=== PATIENT | female | born 1940 | race Asian ===

== ENCOUNTER 2020-07-30 10:38 | Inpatient (IN) | payer MEDICARE, MEDICAID ==
[~2020-07-30] VITALS: Ht 152.4 cm; Wt 34.4 kg
[2020-07-30 10:42] VITALS: BP 140/74
--- NOTE | 2020-07-30 11:06 | Emergency Room Report ---
History of Present Illness General Chief Complaint: General Complaint Source: Patient, EMS Present Illness HPI Disclaimer: Please note that this report is being documented using DRAGON technology. This can lead to erroneous entry secondary to incorrect interpretation by the dictating instrument. HPI: 80-year-old female with no medical history presents to ED by EMS for evaluation of back pain, constipation and urinary retention. EMS reports recent back surgery though unsure procedure or timeframe. Patient is primarily Yi speaking and history was obtained using a tuck pointer phone. She denies any recent back injury, trauma or surgery. She states she has been unable to defecate or urinate for the past 2 days. Denies abdominal pain or distention. Denies nausea, vomiting. Denies pelvic pain, dysuria, hematuria or flank pain recently. Denies fever or chills. No other complaints from the patient. States she takes no medications. Family on their way to provide additional information. PMH: Patient denied PSH: Patient denied Allergies: Patient denied Social Hx: Patient denied Allergies: Coded Allergies: No Known Allergies (Unverified , 07/30/20) COVID-19 Screening Contact w/high risk pt: No Experienced COVID-19 symptoms?: No COVID-19 Testing performed MULTIFOCAL BUTTON GENERATOR: No Patient History Last Menstrual Period: na Nursing Documentation-PMH Past Medical History: No History, Except For Hx Hypertension: Yes Review of Systems All Other Systems: negative except mentioned in HPI Physical Exam Vital Signs Date Time Temp Pulse Resp B/P (MAP) Pulse Ox O2 Delivery O2 Flow Rate FiO2 07/30/20 10:33 97.9 120 18 142/80 (100) 96 Room Air General: Awake and alert, no acute distress HEENT: NC/AT. EOMI. Cardiovascular: Tachycardic. S1 and S2 normal. No murmur appreciated Resp: Normal work of breathing. No cough, wheezing or crackles appreciated Abdomen: Abdomen is soft, nondistended. Nontender Skin: Intact. No abrasions, laceration or rash over the exposed skin MSK: Normal tone and bulk. Moving all extremities. No obvious deformity. Neuro: Awake and alert. Mentating appropriately. Medical Decision Making Diagnostic Impression: Primary Impression: Urinary retention Additional Impressions: Bowel obstruction Lumbar compression fracture ER Course Is an 80-year-old female presenting for evaluation of inability urinate or defecate for the past 2 days with lower back pain. Differential includes was not limited to cauda equina syndrome, spinal fracture, spinal epidural abscess, metastatic lesion, UTI, pyelonephritis, acute kidney injury, kidney failure, bowel obstruction, ileus, mesenteric ischemia among others. Patient appears well and denying any complaints at this time though is tachycardic. Abdomen x- ray concerning for bowel obstruction versus ileus. CT was obtained showing multilevel disc disease and age-indeterminate endplate fractures in the lumbar spine as well as gaseous distention of the large intestine with no obvious obstruction. Questionable urinary tract infection. Will cover with antibiotics. Patient admitted to panel physician, Elida shetty. Laboratory Tests Test 07/30/20 10:54 07/30/20 11:28 White Blood Count 9.6 K/UL (4.8-10.8) Red Blood Count 4.60 M/UL (4.20-5.40) Hemoglobin 13.3 G/DL (12.0-16.0) Hematocrit 38.8 % (37.0-47.0) Mean Corpuscular Volume 84 FL (80-99) Mean Corpuscular Hemoglobin 28.9 PG (27.0-31.0) Mean Corpuscular Hemoglobin Concent 34.3 G/DL (32.0-36.0) Red Cell Distribution Width 10.9 % (11.6-14.8) L Platelet Count 184 K/UL (150-450) Mean Platelet Volume 5.6 FL (6.5-10.1) L Neutrophils (%) (Auto) 84.8 % (45.0-75.0) H Lymphocytes (%) (Auto) 7.3 % (20.0-45.0) L Monocytes (%) (Auto) 5.1 % (1.0-10.0) Eosinophils (%) (Auto) 0.7 % (0.0-3.0) Basophils (%) (Auto) 2.2 % (0.0-2.0) H Prothrombin Time 10.5 SEC (9.30-11.50) Prothrombin Time INR 0.9 (0.9-1.1) Activated Partial Thromboplast Time 28 SEC (23-33) Urine Color Brown Urine Appearance Slightly cloudy Urine pH 5 (4.5-8.0) Urine Specific [place] 1.025 (1.005-1.035) Urine Protein 2+ (NEGATIVE) H Urine Glucose (UA) Negative (NEGATIVE) Urine Ketones 2+ (NEGATIVE) H Urine Blood Negative (NEGATIVE) Urine Nitrite Negative (NEGATIVE) Urine Bilirubin Negative (NEGATIVE) Urine Urobilinogen 1 MG/DL (0.0-1.0) H Urine Leukocyte Esterase 1+ (NEGATIVE) H Urine RBC 2-4 /HPF (0 - 2) H Urine WBC 2-4 /HPF (0 - 2) Urine Squamous Epithelial Cells Moderate /LPF (NONE/OCC) H Urine Bacteria Few /HPF (NONE) Sodium Level 142 MMOL/L (136-145) Potassium Level 4.1 MMOL/L (3.5-5.1) Chloride Level 104 MMOL/L (98-107) Carbon Dioxide Level 26 MMOL/L (21-32) Anion Gap 12 mmol/L (5-15) Blood Urea Nitrogen 16 mg/dL (7-18) Creatinine 0.7 MG/DL (0.55-1.30) Estimated Glomerular Filtration Rate > 60 mL/min (>60) Glucose Level 116 MG/DL (74-106) H Calcium Level 9.2 MG/DL (8.5-10.1) Total Bilirubin 1.7 MG/DL (0.2-1.0) H Direct Bilirubin 0.4 MG/DL (0.0-0.3) H Aspartate Amino Transferase (AST) 12 U/L (15-37) L Alanine Aminotransferase (ALT) 12 U/L (12-78) Alkaline Phosphatase 132 U/L (46-116) H Total Protein 7.2 G/DL (6.4-8.2) Albumin 3.6 G/DL (3.4-5.0) Globulin 3.6 g/dL Albumin/Globulin Ratio 1.0 (1.0-2.7) Lactic Acid Level 1.20 mmol/L (0.4-2.0) Last Vital Signs Date Time Temp Pulse Resp B/P (MAP) Pulse Ox O2 Delivery O2 Flow Rate FiO2 07/30/20 10:42 97.9 71 18 140/74 96 Room Air Disposition: ADMITTED INPATIENT Condition: Stable Scripts Unable to Obtain Active Prescriptions or Reported Meds Lalo Barth MD Jul 30, 2020 11:06
--- NOTE | 2020-07-30 11:11 | Diagnostic Imaging Report ---
EXAM: XR Abdomen, 2 Views CLINICAL HISTORY: ABD PAIN TECHNIQUE: Frontal view of the abdomen/pelvis with upright view of the abdomen. COMPARISON: None FINDINGS: Hardware: None. Abdomen: Gaseous distention of colon No free air. Bones: Degenerative changes of the spine. Intramedullary eleazar and screw fixation of the right femur partially visualized. Soft tissues: Normal. Lower chest: Interstitial opacities in the visualized lower lungs. IMPRESSION: Gaseous distention of colon. This may represent ileus. Distal colonic obstruction not excluded.
[2020-07-30 11:15] LABS: BASOPHILS % (AUTO) 2.2 % (0.0-2.0); EOSINOPHILS % (AUTO) 0.7 % (0.0-3.0); HEMATOCRIT 38.8 % (37.0-47.0); HEMOGLOBIN 13.3 G/DL (12.0-16.0); LYMPHOCYTES % (AUTO) 7.3 % (20.0-45.0); MEAN CORPUSCULAR VOLUME 84 FL (80-99); MONOCYTES % (AUTO) 5.1 % (1.0-10.0); NEUTROPHILS % (AUTO) 84.8 % (45.0-75.0); PLATELET COUNT 184 K/UL (150-450); RED CELL DISTRIBUTION WIDTH 10.9 % (11.6-14.8); WHITE BLOOD COUNT 9.6 K/UL (4.8-10.8)
[2020-07-30 11:27] LABS: ANION GAP 12 mmol/L (5-15); BLOOD UREA NITROGEN 16 mg/dL (7-18); CALCIUM 9.2 MG/DL (8.5-10.1); CARBON DIOXIDE 26 MMOL/L (21-32); CHLORIDE 104 MMOL/L (98-107); CREATININE 0.7 MG/DL (0.55-1.30); INR 0.9 (0.9-1.1); POTASSIUM 4.1 MMOL/L (3.5-5.1); SODIUM 142 MMOL/L (136-145)
[2020-07-30] MEDS ORDERED: Omnipaque 350 100ml vial INJ ONE (11:30)
[2020-07-30 11:33] LABS: ALANINE AMINOTRANSFERASE 12 U/L (12-78); ALBUMIN 3.6 G/DL (3.4-5.0); ALKALINE PHOSPHATASE 132 U/L (46-116); ASPARTATE AMINO TRANSFERASE 12 U/L (15-37); BILIRUBIN,TOTAL 1.7 MG/DL (0.2-1.0)
[2020-07-30 11:54] LABS: BILIRUBIN,DIRECT 0.4 MG/DL (0.0-0.3)
[2020-07-30 12:22] VITALS: BP 136/81
[2020-07-30 12:38] LABS: APPEARANCE,URINE SLIGHTLY CLOUDY; BILIRUBIN, URINE NEGATIVE (NEGATIVE); COLOR,URINE BROWN; GLUCOSE, URINE (UA) NEGATIVE (NEGATIVE); KETONES,URINE 2+ (NEGATIVE); LEUKOCYTE ESTERASE ,URINE 1+ (NEGATIVE); NITRITE,URINE NEGATIVE (NEGATIVE); PH,URINE 5 (4.5-8.0); PROTEIN,URINE 2+ (NEGATIVE); UROBILINOGEN,URINE 1 MG/DL (0.0-1.0)
--- NOTE | 2020-07-30 13:26 | Diagnostic Imaging Report ---
EXAM: CT Abdomen and Pelvis With Intravenous Contrast CLINICAL HISTORY: PAIN TECHNIQUE: Axial computed tomography images of the abdomen and pelvis with intravenous contrast. CTDI is 2.6 mGy and DLP is 110.0 mGy-cm. One or more of the following dose reduction techniques were used: automated exposure control, adjustment of the mA and/or kV according to patient size, use of iterative reconstruction technique. COMPARISON: None FINDINGS: Lung bases: Lower lung atelectasis. Small calcified granuloma at the posterior right lung base. Pleural space: Trace left pleural effusion. Mediastinum: Mild prominence of the wall of the distal esophagus may represent esophagitis. ABDOMEN: Liver: Unremarkable. No mass. Gallbladder and bile ducts: Unremarkable. No calcified stones. No ductal dilation. Pancreas: Unremarkable. No mass. No ductal dilation. Spleen: Unremarkable. No splenomegaly. Adrenals: Unremarkable. No mass. Kidneys and ureters: See below. Stomach and bowel: Gastric wall thickening may be secondary to under distention versus gastritis. Mild gaseous distention of the colon. No evidence of obstruction. PELVIS: Appendix: Normal appendix. Bladder: Decompressed bladder. Reproductive: Retroverted uterus. ABDOMEN and PELVIS: Intraperitoneal space: Unremarkable. No free air. No significant fluid collection. Bones/joints: Age indeterminate compression deformities of the T12, L1, L2, L3, and L4 vertebral bodies. Arthritic contrast in the renal collecting systems. No hydronephrosis. Intramedullary eleazar and screw fixation of the right femur. Osteopenia. Degenerative changes of the spine. No dislocation. Soft tissues: Unremarkable. Vasculature: Unremarkable. No abdominal aortic aneurysm. Lymph nodes: Unremarkable. No enlarged lymph nodes. IMPRESSION: 1. Trace left pleural effusion. 2. Mild prominence of the wall of the distal esophagus may represent esophagitis. 3. Gastric wall thickening may be secondary to under distention versus gastritis. 4. Age indeterminate compression deformities of the T12, L1, L2, L3, and L4 vertebral bodies. 5. Mild gaseous distention of the colon. No evidence of obstruction.
--- NOTE | 2020-07-30 13:31 | Diagnostic Imaging Report ---
EXAM: CT Lumbar Spine Without Intravenous Contrast CLINICAL HISTORY: PAIN TECHNIQUE: Axial computed tomography images of the lumbar spine without intravenous contrast. CTDI is 3.5 mGy and DLP is 103.3 mGy-cm. One or more of the following dose reduction techniques were used: automated exposure control, adjustment of the mA and/or kV according to patient size, use of iterative reconstruction technique. COMPARISON: None FINDINGS: Bones: Age indeterminate compression deformities of the T12, L1, L2, L3, and L4 vertebral bodies. Osteopenia. Disc spaces: No subluxation. Degenerative changes of the spine. No significant spinal canal stenosis. Moderate bilateral neural foraminal stenoses at T11-12. Mild bilateral neural foraminal stenoses at T12-L1. Mild bilateral neural foraminal stenoses at L1-2, L2-3, and L3-4. Severe bilateral neural foraminal stenoses at L4-5 and L5-S1. Soft tissues: Normal. Other: Trace left pleural effusion partially visualized. Please see accompanying CT abdomen/pelvis for further details. IMPRESSION: 1. Age indeterminate compression deformities of the T12, L1, L2, L3, and L4 vertebral bodies. 2. Degenerative changes of the spine. No significant spinal canal stenosis. Multilevel neural foraminal stenoses as described.
[2020-07-30] MEDS ORDERED: cefTRIAXone 1 GM in NS 55 ML IVPB ONE (14:30)
[2020-07-30] MEDS ORDERED: Albuterol/Ipratropium 3ml neb HHN PRN (15:00)
[2020-07-30] MEDS ORDERED: HYDROmorphone 1mg/ml Carpuject IVP PRN (15:00)
--- NOTE | 2020-07-30 15:33 | History and Physical ---
History of Present Illness General Date patient seen: Jul 30, 2020 Reason for Hospitalization: General Complaint Present Illness HPI Mrs. Horner is a 80F with no sig PMH who was BIBA for back pain and urinary incontinence. Patient is Kiswahili speaking only and a services manager over the phone was used. Patient reports approx. 5 days ago suffering acute lower back pain that was exacerbated after she lifted "heavy things." Her back pain is dull, rates 8-10/10, non-radiating, no alleviating factors, but bending over makes it worse. Denies any LE weakness or sensory changes, saddle anesthesia; but notes difficulty with urinating over the last few days along with constipation. Denies previous similar hx. No hx of osteoporosis. Takes no home medications. Denies fevers, chills, pre-syncope, cough, sob, chest pain, abdominal pain, diarrhea or dysuria. She has decreased oral intake due to nausea, but no vomiting. No recent illnesses, sick contacts or travels. Rest of 10 point ROS negative besides what stated above. In the ED, patient found to be hemodynamically stable with no respiratory compromise. Imaging of abd/pelv shows mild dilated colon w/ no obstruction and spine CT shows multiple levels of age undetermined compression fx in her lumbar spine. She mainly complains of lower back pain, but otherwise stable. Nurse was able to straight cath her in which she subsequently later urinated in her bed. She will be admitted for possible Jamison obstruction, lumbar compression fracture, and urinary incontinence. PMH: none Sx: none Fx: denies DM, heart disease, lung disease Aller: none Meds: none Soc: non-smoker, drinker or recreational drug user Allergies: Coded Allergies: No Known Allergies (Unverified , 07/30/20) COVID-19 Screening Contact w/high risk pt: No Experienced COVID-19 symptoms?: No Medication History Unable to Obtain Active Prescriptions or Reported Meds Patient History Healthcare decision maker Resuscitation status Advanced Directive on File Physical Exam General Appearance: no apparent distress, alert, agitated HEENT: normocephalic, atraumatic Neck: non-tender, normal inspection Respiratory/Chest: lungs clear, normal breath sounds, no respiratory distress Cardiovascular/Chest: normal rate, regular rhythm, regularly irregular Abdomen: normal bowel sounds, non tender, soft Extremities: normal range of motion, non-tender, no edema Skin Exam: normal pigmentation, warm/dry 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, alert, oriented x 3 Musculoskeletal: normal muscle bulk Last 24 Hour Vital Signs Date Time Temp Pulse Resp B/P (MAP) Pulse Ox O2 Delivery O2 Flow Rate FiO2 07/30/20 12:22 75 18 136/81 97 Room Air 07/30/20 10:42 97.9 71 18 140/74 96 Room Air 07/30/20 10:42 74 18 Room Air 07/30/20 10:33 97.9 120 18 142/80 (100) 96 Room Air Laboratory Tests Test 07/30/20 10:54 07/30/20 11:28 White Blood Count 9.6 K/UL (4.8-10.8) Red Blood Count 4.60 M/UL (4.20-5.40) Hemoglobin 13.3 G/DL (12.0-16.0) Hematocrit 38.8 % (37.0-47.0) Mean Corpuscular Volume 84 FL (80-99) Mean Corpuscular Hemoglobin 28.9 PG (27.0-31.0) Mean Corpuscular Hemoglobin Concent 34.3 G/DL (32.0-36.0) Red Cell Distribution Width 10.9 % (11.6-14.8) L Platelet Count 184 K/UL (150-450) Mean Platelet Volume 5.6 FL (6.5-10.1) L Neutrophils (%) (Auto) 84.8 % (45.0-75.0) H Lymphocytes (%) (Auto) 7.3 % (20.0-45.0) L Monocytes (%) (Auto) 5.1 % (1.0-10.0) Eosinophils (%) (Auto) 0.7 % (0.0-3.0) Basophils (%) (Auto) 2.2 % (0.0-2.0) H Prothrombin Time 10.5 SEC (9.30-11.50) Prothromb Time International Ratio 0.9 (0.9-1.1) Activated Partial Thromboplast Time 28 SEC (23-33) Urine Color Brown Urine Appearance Slightly cloudy Urine pH 5 (4.5-8.0) Urine Specific [place] 1.025 (1.005-1.035) Urine Protein 2+ (NEGATIVE) H Urine Glucose (UA) Negative (NEGATIVE) Urine Ketones 2+ (NEGATIVE) H Urine Blood Negative (NEGATIVE) Urine Nitrite Negative (NEGATIVE) Urine Bilirubin Negative (NEGATIVE) Urine Urobilinogen 1 MG/DL (0.0-1.0) H Urine Leukocyte Esterase 1+ (NEGATIVE) H Urine RBC 2-4 /HPF (0 - 2) H Urine WBC 2-4 /HPF (0 - 2) Urine Squamous Epithelial Cells Moderate /LPF (NONE/OCC) H Urine Bacteria Few /HPF (NONE) Sodium Level 142 MMOL/L (136-145) Potassium Level 4.1 MMOL/L (3.5-5.1) Chloride Level 104 MMOL/L (98-107) Carbon Dioxide Level 26 MMOL/L (21-32) Anion Gap 12 mmol/L (5-15) Blood Urea Nitrogen 16 mg/dL (7-18) Creatinine 0.7 MG/DL (0.55-1.30) Estimat Glomerular Filtration Rate > 60 mL/min (>60) Glucose Level 116 MG/DL (74-106) H Calcium Level 9.2 MG/DL (8.5-10.1) Total Bilirubin 1.7 MG/DL (0.2-1.0) H Direct Bilirubin 0.4 MG/DL (0.0-0.3) H Aspartate Amino Transf (AST/SGOT) 12 U/L (15-37) L Alanine Aminotransferase (ALT/SGPT) 12 U/L (12-78) Alkaline Phosphatase 132 U/L (46-116) H Total Protein 7.2 G/DL (6.4-8.2) Albumin 3.6 G/DL (3.4-5.0) Globulin 3.6 g/dL Albumin/Globulin Ratio 1.0 (1.0-2.7) Lactic Acid Level 1.20 mmol/L (0.4-2.0) Height (Feet): 5 Weight (Pounds): 110 Medications Current Medications Medications (Trade) Dose Ordered Sig/Stefano Route PRN Reason Start Time Stop Time Status Last Admin Dose Admin Acetaminophen (Tylenol) 650 mg Q4H PRN ORAL Temp >100.5 07/30/20 15:00 08/29/20 14:59 Albuterol/ Ipratropium (Albuterol/ Ipratropium) 3 ml Q6H PRN HHN Shortness of Breath 07/30/20 15:00 08/04/20 14:59 Dextrose (Dextrose 50%) 25 ml Q30M PRN IV Hypoglycemia 07/30/20 15:00 10/28/20 14:59 Dextrose (Dextrose 50%) 50 ml Q30M PRN IV Hypoglycemia 07/30/20 15:00 10/28/20 14:59 Enoxaparin Sodium (Lovenox) 40 mg Q24H SUBQ 07/30/20 21:00 10/28/20 20:59 Hydromorphone HCl (Dilaudid) 1 mg Q4H PRN IVP breakthrough pain 07/30/20 15:00 08/06/20 14:59 Morphine Sulfate (Morphine Sulfate) 2 mg Q4H PRN IVP Severe Pain (Pain Scale 7-10) 07/30/20 15:00 08/06/20 14:59 Ondansetron HCl (Zofran) 4 mg Q6H PRN IVP Nausea & Vomiting 07/30/20 15:00 08/29/20 14:59 Pantoprazole (Protonix) 40 mg DAILY ORAL 07/30/20 15:00 08/29/20 14:59 Sodium Chloride 1,000 ml @ 100 mls/hr Q10H IVLG 07/30/20 16:00 08/29/20 15:59 Assessment/Plan Assessment/Plan: Mrs. Horner is a 80F with no sig PMH who presents for back pain, constipation and urinary incontinence. A: # Colon Distension 2/2 Jamison Obstruction vs Ileus # Age indeterminate compression vertebral body deformities T12-L4 # Severe Lumbar Spinal Stenosis # Urinary Incontinence # Gastritis # Hyperglycemia # Hyperbilirubinemia P: - hemodynamically stable - bowel rest - NPO besides ice chips/meds - serial KUB's - no electrolyte derangements or home medications as causes of pseudoobstruction - IVF resucitation - will hold off on surgery consult for now, will consider if obstruction does not improve - morphine for pain - strict I/O's - bladder scan if suspicion for retention - straight cath if PVR > 200 - patient denies dysuria, urinary frequency no clinical indication of UTI - consult Spinal Surgery : Dr. Woodall, recs appreciated - PT/OT - CM GI: PPI IVF: NS 100cc Abx: none DVT: Lovenox 40 mg subq Diet: NPO CODE: Full code Dsipo: pending resolution of bowel distension, spinal surgery recs, may benefit from SNF placement Time spent on this encounter was 85 minutes with 45 minutes dedicated to counseling and care coordination. I discussed with RN and currently awaiting spinal surgery recs as stated above. Time of this note may not reflect the time patient was seen. Giovanny Mirza D.O Jul 30, 2020 15:32
[2020-07-30 16:00] VITALS: BP 140/77
[2020-07-30 20:00] VITALS: BP 118/62
[2020-07-30] MEDS: Enoxaparin 40mg Inj SUBQ SCH (20:06)
--- NOTE | 2020-07-30 21:06 | General Progress Note ---
Advance Care Planning Advance Care Planning Advance Care Planning [facility] An independent Hospitalist group, where every patient is our [facility] Internal Medicine Hospitalist Advanced Care Planning Note Please contact us at Date of Discussion: A [id number] discussion with the patient regarding the patient's advanced care planning took place during this hospitalization on the above date. The discussion included the explanation and discussion of advance directives and associated forms/documents, as well as the patient's current code status. We also discussed at length the patient's medical conditions (both acute and chroni c), general prognosis, treatment options, and goals of care. The following summarizes the discussion: Advance Care Planning/Goals of Care: - Will attempt to fill out an AD and/or POLST with the patient prior to discharge, if not already completed - Continue current evaluation and management of any acute and chronic medical issues - Will continue to support the patient/family - Will continue to discuss both short- and long-term goals of care DPOA-HC/Surrogate Decision Maker: None currently appointed for the patient Code Status: Full Code Advanced Care Planning Forms/Documents Completed: Deferred until later encounter/visit A total of 20 minutes was spent on this discussion, including counseling, answering questions, and completing, if any, pertinent advanced care planning forms/documents. Time of note may not reflect time of encounter. Giovanny Mirza D.O Jul 30, 2020 21:06
[2020-07-31] VITALS: BP 107/53
[2020-07-31] MEDS: Morphine Sulfate 2mg/ml Inj(IV/IM USE ONLY) IVP PRN ×3 (03:35→20:14)
[2020-07-31 04:00] VITALS: BP 110/61
[2020-07-31 07:22] LABS: EOSINOPHILS % (AUTO) 0.3 % (0.0-3.0); HEMOGLOBIN 11.7 G/DL (12.0-16.0); LYMPHOCYTES % (AUTO) 12.2 % (20.0-45.0); MEAN CORPUSCULAR VOLUME 86 FL (80-99); MONOCYTES % (AUTO) 5.7 % (1.0-10.0); NEUTROPHILS % (AUTO) 80.7 % (45.0-75.0); PLATELET COUNT 172 K/UL (150-450); RED BLOOD COUNT 4.05 M/UL (4.20-5.40); RED CELL DISTRIBUTION WIDTH 11.1 % (11.6-14.8); WHITE BLOOD COUNT 6.5 K/UL (4.8-10.8)
[2020-07-31 07:48] LABS: ALANINE AMINOTRANSFERASE 9 U/L (12-78); ALBUMIN 2.9 G/DL (3.4-5.0); ALBUMIN/GLOBULIN RATIO 1.1 (1.0-2.7); ALKALINE PHOSPHATASE 108 U/L (46-116); ANION GAP 18 mmol/L (5-15); ASPARTATE AMINO TRANSFERASE 13 U/L (15-37); BLOOD UREA NITROGEN 20 mg/dL (7-18); CALCIUM 8.7 MG/DL (8.5-10.1); CARBON DIOXIDE 16 MMOL/L (21-32); CHLORIDE 109 MMOL/L (98-107); CREATININE 0.7 MG/DL (0.55-1.30); PHOSPHORUS 4.8 MG/DL (2.5-4.9); POTASSIUM 4.1 MMOL/L (3.5-5.1); SODIUM 143 MMOL/L (136-145)
[2020-07-31 08:00] VITALS: BP 108/51
[2020-07-31] MEDS ORDERED: Docusate 100mg cap ORAL SCH (09:00)
[2020-07-31] MEDS: D5 1/2NS 1,000 ML IV SCH ×2 (11:53→20:51)
[2020-07-31 12:00] VITALS: BP 110/57
[2020-07-31] MEDS ORDERED: Potassium Chloride 10 MEQ in D5 1/2NS 1,000 ML IV SCH (12:00)
--- NOTE | 2020-07-31 13:36 | General Progress Note ---
Subjective Date patient seen: Jul 31, 2020 ROS Limited/Unobtainable: Yes Allergies: Coded Allergies: No Known Allergies (Unverified , 07/30/20) Subjective Overnight patient reained 450 cc of urine and required straight cath. No other events. Patient still has back pain. No LE weakness, sensory deficits or saddle anesthesia. She still has no appetite. Has mild nausea, no vomiting. No tremors, palpitations or diaphoresis. Objective Last 24 Hour Vital Signs Date Time Temp Pulse Resp B/P (MAP) Pulse Ox O2 Delivery O2 Flow Rate FiO2 07/31/20 12:00 98.1 20 110/57 (74) 95 07/31/20 09:00 Room Air 07/31/20 08:00 97.9 98 20 108/51 (70) 95 07/31/20 04:00 97.7 102 18 110/61 (77) 94 07/31/20 00:00 96.7 97 18 107/53 (71) 93 07/30/20 21:00 Room Air 07/30/20 20:00 98.1 99 20 118/62 (80) 94 07/30/20 16:52 97.2 07/30/20 16:00 100.8 116 20 140/77 (98) 93 07/30/20 15:28 Room Air 07/30/20 15:24 98.3 72 16 141/86 98 Room Air Intake and Output 07/30/20 07/31/20 18:59 06:59 Intake Total 2255 ml 1200 ml Output Total 400 ml 820 ml Balance 1855 ml 380 ml Intake IV Total 2255 ml 1200 ml Output Urine Total 400 ml 410 ml Post Void Residual 410 ml Bladder Scan Volume Amount 428ml 83ml # Voids 1 Laboratory Tests 07/31/20 06:30: White Blood Count 6.5, Red Blood Count 4.05L, Hemoglobin 11.7L, Hematocrit 35.0L , Mean Corpuscular Volume 86, Mean Corpuscular Hemoglobin 29.0, Mean Corpuscular Hemoglobin Concent 33.6, Red Cell Distribution Width 11.1L, Platelet Count 172, Mean Platelet Volume 6.4L, Neutrophils (%) (Auto) 80.7H, Lymphocytes (%) (Auto) 12.2L, Monocytes (%) (Auto) 5.7, Eosinophils (%) (Auto) 0.3, Basophils (%) (Auto) 1.0, Sodium Level 143, Potassium Level 4.1, Chloride Level 109H, Carbon Dioxide Level 16L, Anion Gap 18H, Blood Urea Nitrogen 20H, Creatinine 0.7, Estimat Glomerular Filtration Rate > 60, Glucose Level 54L, Hemoglobin A1c 5.4, Calcium Level 8.7, Phosphorus Level 4.8, Magnesium Level 1.9, Total Bilirubin 1.0, Aspartate Amino Transf (AST/SGOT) 13L, Alanine Aminotransferase (ALT/SGPT) 9L, Alkaline Phosphatase 108, Total Protein 5.5L, Albumin 2.9L, Globulin 2.6, Albumin/Globulin Ratio 1.1, Vitamin D 25-Hydroxy [Pending], 25-Hydroxy Vitamin D2 [Pending], 25-Hydroxy Vitamin D3 [Pending], Thyroid Stimulating Hormone (TSH) < 0.010L, Free Thyroxine 2.57H 07/31/20 11:00: Lactic Acid Level 0.80 Height (Feet): 5 Height (Inches): 0.00 Weight (Pounds): 70 General Appearance: no apparent distress, thin EENT: PERRL/EOMI Neck: normal alignment, normal inspection Cardiovascular: normal rate, regular rhythm, no JVD Respiratory/Chest: lungs clear, normal breath sounds, no respiratory distress Abdomen: normal bowel sounds, non tender, no organomegaly Extremities: normal range of motion, non-tender Edema: no edema noted Arm (L), no edema noted Arm (R), no edema noted Leg (L), no edema noted Leg (R), no edema noted Pedal (L), no edema noted Pedal (R), no edema noted 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 Horner is a 80F with no sig PMH who presents for back pain, constipation and urinary incontinence. A: # Colon Distension 2/2 Jamison Obstruction vs Ileus # Age indeterminate compression vertebral body deformities T12-L4 # Anion Gap Metabolic Acidosis # Severe Lumbar Spinal Stenosis # Urinary Incontinence # ?New Hyperthyroidsm - aysmptomatic # Gastritis # Hyperglycemia # Hyperbilirubinemia P: - hemodynamically stable - bowel rest - NPO besides ice chips/meds - serial KUB's > repeat pending - no electrolyte derangements or home medications as causes of pseudoobstruction - IVF resucitation - worsening metabolic acidosis, will have surgery evaluate her - morphine for pain - strict I/O's - bladder scan q6h - straight cath if PVR > 200 - patient denies dysuria, urinary frequency no clinical indication of UTI - reviewed hyperthyroid labs, asymptomatic and vitals stable at this time, no nodules palpated - consult Dr. Sneed endocrinology, recs appreciated - consult Spinal Surgery : Dr. Deutsch, recs appreciated - consult Dr. Marquez gen surgery, recs appreciated - PT/OT - CM GI: PPI IVF: D5NS 100cc Abx: none DVT: Lovenox 40 mg subq Diet: NPO CODE: Full code Dsipo: pending resolution of bowel distension, spinal surgery recs, may benefit from SNF placement Time spent on this encounter was 45 minutes with 25 minutes dedicated to counseling and care coordination. I discussed with RNand Dr. Deutsch, Dr. Sneed, and Dr Marquez. Time of this note may not reflect the time patient was seen. Giovanny Mirza D.O Jul 31, 2020 13:36
[2020-07-31 16:00] VITALS: BP 147/79
--- NOTE | 2020-07-31 18:09 | Diagnostic Imaging Report ---
Indication: Abdominal distention and pain Technique: Supine view of the abdomen Comparison: 07/30/2020 Findings: As previously, considerable gas is seen distributed through upper limits of normal caliber large and small bowel. Amount of bowel gas appears decreased. Contrast from recent CT scan is seen within the bladder. There is evidence of multiple vertebral body compression fractures. There is right hip surgical hardware Impression: Prominent bowel gas without evidence of avi distention, overall amount of gas slightly decreased from previous day's exam. No definite acute process.
[2020-07-31 20:00] VITALS: BP 137/75
[2020-07-31] MEDS: Enoxaparin 40mg Inj SUBQ SCH (20:14)
--- NOTE | 2020-07-31 21:24 | Consultation ---
History of Present Illness General Reason for Hospitalization: General Complaint Present Illness HPI this is a very pleasant 80-year-old female with no medical history who presents to ED by EMS for evaluation of back pain, constipation and urinary retention. EMS reports recent back surgery though unsure procedure or timeframe. Patient is primarily Croatian speaking and history was obtained using a sales service coordinator phone. She denies any recent back injury, trauma or surgery. She states she has been unable to defecate or urinate for the past 2 days. Denies abdominal pain or distention. Denies nausea, vomiting. Denies pelvic pain, dysuria, hematuria or flank pain recently. Denies fever or chills. No other complaints from the patient. States she takes no medications. admitted for work up care and management. surgery called to evaluate and assist with care. Allergies: Coded Allergies: No Known Allergies (Unverified , 07/30/20) COVID-19 Screening Contact w/high risk pt: No Experienced COVID-19 symptoms?: No Medication History Unable to Obtain Active Prescriptions or Reported Meds Patient History Limited by: language barrier History Provided By: Patient, Medical Record, PMD Healthcare decision maker Resuscitation status Advanced Directive on File Past Medical/Surgical History Past Medical/Surgical History: (1) Urinary retention (2) Bowel obstruction (3) Lumbar compression fracture Review of Systems Review of Symptoms General ROS: no weight loss or fever Psychological ROS: no depression or mood changes, no memory loss Ophthalmic ROS: no visual changes or eye irritation ENT ROS: no nasal congestion, hearing loss, dizziness Allergy and Immunology ROS: no allergic symptoms or urticaria Hematological and Lymphatic ROS: no swollen glands, unusual bleeding or bruising Endocrine ROS: no polyuria, polydipsia, weight changes, temperature intolerance Respiratory ROS: no cough, shortness of breath, or wheezing Cardiovascular ROS: no chest pain or dyspnea on exertion Gastrointestinal ROS: denies abdominal pain, bright red blood in stool. Musculoskeletal ROS: no myalgias or arthralgias Neurological ROS: no TIA or stroke symptoms Dermatological ROS: no new or changing skin lesions, rashes or pruritis Physical Exam Physical Exam General appearance: alert, cooperative, no distress, appears stated age Head: Normocephalic, without obvious abnormality, atraumatic Eyes: conjunctivae/corneas clear. PERRL, EOM's intact. Fundi benign Throat: Lips, mucosa, and tongue normal. Teeth and gums normal Neck: supple, symmetrical, trachea midline, no adenopathy, thyroid: not enlarged, symmetric, no tenderness/mass/nodules, no carotid bruit and no JVD Lungs: clear to auscultation bilaterally Heart: regular rate and rhythm, S1, S2 normal, no murmur, click, rub or gallop Abdomen: soft, non-tender. Bowel sounds normal. No masses, no organomegaly Extremities: extremities normal, atraumatic, no cyanosis or edema Pulses: 2+ and symmetric Skin: Skin color, texture, turgor normal. No rashes or lesions Neurologic: Grossly normal Last 24 Hour Vital Signs Date Time Temp Pulse Resp B/P (MAP) Pulse Ox O2 Delivery O2 Flow Rate FiO2 07/31/20 21:00 Room Air 07/31/20 20:00 98.1 109 22 137/75 (95) 92 07/31/20 16:00 98.1 100 20 147/79 (101) 94 07/31/20 12:00 98.1 20 110/57 (74) 95 07/31/20 09:00 Room Air 07/31/20 08:08 96 Room Air 07/31/20 08:00 97.9 98 20 108/51 (70) 95 07/31/20 04:00 97.7 102 18 110/61 (77) 94 07/31/20 00:00 96.7 97 18 107/53 (71) 93 Intake and Output 07/30/20 07/31/20 19:00 07:00 Intake Total 2255 ml 1200 ml Output Total 400 ml 820 ml Balance 1855 ml 380 ml IV Total 2255 ml 1200 ml Output Urine Total 400 ml 410 ml Post Void Residual 410 ml Bladder Scan Volume Amount 428ml 83ml # Voids 1 Laboratory Tests Test 07/31/20 06:30 07/31/20 11:00 White Blood Count 6.5 K/UL (4.8-10.8) Red Blood Count 4.05 M/UL (4.20-5.40) L Hemoglobin 11.7 G/DL (12.0-16.0) L Hematocrit 35.0 % (37.0-47.0) L Mean Corpuscular Volume 86 FL (80-99) Mean Corpuscular Hemoglobin 29.0 PG (27.0-31.0) Mean Corpuscular Hemoglobin Concent 33.6 G/DL (32.0-36.0) Red Cell Distribution Width 11.1 % (11.6-14.8) L Platelet Count 172 K/UL (150-450) Mean Platelet Volume 6.4 FL (6.5-10.1) L Neutrophils (%) (Auto) 80.7 % (45.0-75.0) H Lymphocytes (%) (Auto) 12.2 % (20.0-45.0) L Monocytes (%) (Auto) 5.7 % (1.0-10.0) Eosinophils (%) (Auto) 0.3 % (0.0-3.0) Basophils (%) (Auto) 1.0 % (0.0-2.0) Sodium Level 143 MMOL/L (136-145) Potassium Level 4.1 MMOL/L (3.5-5.1) Chloride Level 109 MMOL/L (98-107) H Carbon Dioxide Level 16 MMOL/L (21-32) L Anion Gap 18 mmol/L (5-15) H Blood Urea Nitrogen 20 mg/dL (7-18) H Creatinine 0.7 MG/DL (0.55-1.30) Estimat Glomerular Filtration Rate > 60 mL/min (>60) Glucose Level 54 MG/DL (74-106) L Hemoglobin A1c 5.4 % (4.3-6.0) Calcium Level 8.7 MG/DL (8.5-10.1) Phosphorus Level 4.8 MG/DL (2.5-4.9) Magnesium Level 1.9 MG/DL (1.8-2.4) Total Bilirubin 1.0 MG/DL (0.2-1.0) Aspartate Amino Transf (AST/SGOT) 13 U/L (15-37) L Alanine Aminotransferase (ALT/SGPT) 9 U/L (12-78) L Alkaline Phosphatase 108 U/L (46-116) Total Protein 5.5 G/DL (6.4-8.2) L Albumin 2.9 G/DL (3.4-5.0) L Globulin 2.6 g/dL Albumin/Globulin Ratio 1.1 (1.0-2.7) Vitamin D 25-Hydroxy Pending 25-Hydroxy Vitamin D2 Pending 25-Hydroxy Vitamin D3 Pending Thyroid Stimulating Hormone (TSH) < 0.010 uiU/mL (0.358-3.740) Free Thyroxine 2.57 NG/DL (0.76-1.46) H Lactic Acid Level 0.80 mmol/L (0.4-2.0) Height (Feet): 5 Height (Inches): 0.00 Weight (Pounds): 70 Medications Current Medications Medications (Trade) Dose Ordered Sig/Stefano Route PRN Reason Start Time Stop Time Status Last Admin Dose Admin Acetaminophen (Tylenol) 650 mg Q4H PRN ORAL Temp >100.5 07/30/20 15:00 08/29/20 14:59 07/30/20 16:22 Albuterol/ Ipratropium (Albuterol/ Ipratropium) 3 ml Q6H PRN HHN Shortness of Breath 07/30/20 15:00 08/04/20 14:59 Dextrose (Dextrose 50%) 25 ml Q30M PRN IV Hypoglycemia 07/30/20 15:00 10/28/20 14:59 Dextrose (Dextrose 50%) 50 ml Q30M PRN IV Hypoglycemia 07/30/20 15:00 10/28/20 14:59 Dextrose/Sodium Chloride 1,000 ml @ 100 mls/hr Q10H IV 07/31/20 12:00 08/30/20 11:59 07/31/20 20:51 Docusate Sodium (Colace) 100 mg DAILY ORAL 07/31/20 09:00 08/30/20 08:59 07/31/20 09:12 Enoxaparin Sodium (Lovenox) 40 mg Q24H SUBQ 07/30/20 21:00 10/28/20 20:59 07/31/20 20:14 Hydromorphone HCl (Dilaudid) 1 mg Q4H PRN IVP breakthrough pain 07/30/20 15:00 08/06/20 14:59 Morphine Sulfate (Morphine Sulfate) 2 mg Q4H PRN IVP Severe Pain (Pain Scale 7-10) 07/30/20 15:00 08/06/20 14:59 07/31/20 20:14 Ondansetron HCl (Zofran) 4 mg Q6H PRN IVP Nausea & Vomiting 07/30/20 15:00 08/29/20 14:59 Pantoprazole (Protonix) 40 mg DAILY ORAL 07/30/20 15:00 08/29/20 14:59 07/31/20 09:12 Assessment/Plan Problem List: (1) Urinary retention ICD Codes: R33.9 - Retention of urine, unspecified SNOMED: 432487836 (2) Bowel obstruction Assessment & Plan: CT and KUB reviewed Exam benign. abd soft nt/nd, bs+ patient without complaints. unlikely obstruction no bm in days. likely constipated bowel care. start trial diet will follow with exam and recs ABDOMEN: Liver: Unremarkable. No mass. Gallbladder and bile ducts: Unremarkable. No calcified stones. No ductal dilation. Pancreas: Unremarkable. No mass. No ductal dilation. Spleen: Unremarkable. No splenomegaly. Adrenals: Unremarkable. No mass. Kidneys and ureters: See below. Stomach and bowel: Gastric wall thickening may be secondary to under distention versus gastritis. Mild gaseous distention of the colon. No evidence of obstruction. PELVIS: Appendix: Normal appendix. Bladder: Decompressed bladder. Reproductive: Retroverted uterus. ABDOMEN and PELVIS: Intraperitoneal space: Unremarkable. No free air. No significant fluid collection. Bones/joints: Age indeterminate compression deformities of the T12, L1, L2, L3, and L4 vertebral bodies. Arthritic contrast in the renal collecting systems. No hydronephrosis. Intramedullary eleazar and screw fixation of the right femur. Osteopenia. Degenerative changes of the spine. No dislocation. Soft tissues: Unremarkable. Vasculature: Unremarkable. No abdominal aortic aneurysm. Lymph nodes: Unremarkable. No enlarged lymph nodes. IMPRESSION: 1. Trace left pleural effusion. 2. Mild prominence of the wall of the distal esophagus may represent esophagitis. 3. Gastric wall thickening may be secondary to under distention versus gastritis. 4. Age indeterminate compression deformities of the T12, L1, L2, L3, and L4 vertebral bodies. 5. Mild gaseous distention of the colon. No evidence of obstruction. ICD Codes: K56.609 - Unspecified intestinal obstruction, unspecified as to partial versus complete obstruction SNOMED: [id number] (3) Lumbar compression fracture ICD Codes: S32.000A - Wedge compression fracture of unspecified lumbar vertebra, initial encounter for closed fracture SNOMED: 717970602 Mikhail Marquez Jul 31, 2020 21:24
[2020-07-31] MEDS ORDERED: Milk of Magnesia 30ml Ud ORAL PRN (21:30)
[2020-08-01 08:00] VITALS: BP 140/70
[2020-08-01] MEDS: D5 1/2NS 1,000 ML IV SCH ×2 (08:00→17:21)
[2020-08-01] MEDS: Docusate 100mg cap ORAL SCH ×2 (09:00→17:22)
[2020-08-01 09:05] LABS: BASOPHILS % (AUTO) 4.6 % (0.0-2.0); HEMATOCRIT 34.3 % (37.0-47.0); HEMOGLOBIN 11.7 G/DL (12.0-16.0); LYMPHOCYTES % (AUTO) 13.2 % (20.0-45.0); MEAN CORPUSCULAR VOLUME 84 FL (80-99); MONOCYTES % (AUTO) 10.4 % (1.0-10.0); NEUTROPHILS % (AUTO) 69.8 % (45.0-75.0); PLATELET COUNT 188 K/UL (150-450); RED BLOOD COUNT 4.09 M/UL (4.20-5.40); RED CELL DISTRIBUTION WIDTH 10.7 % (11.6-14.8); WHITE BLOOD COUNT 8.1 K/UL (4.8-10.8)
--- NOTE | 2020-08-01 09:15 | Consultation ---
DATE OF CONSULTATION: 07/31/2020 CONSULTING PHYSICIAN: Bo Deutsch MD CHIEF COMPLAINT: Low back pain. HISTORY OF PRESENT ILLNESS: Patient is a pleasant 80-year-old female who presents with back pain and urinary incontinence. Patient speaks only Pashto. She reports that she began experiencing low back pain, possibly 5 days ago after lifting some heavy objects. She subsequently was brought to the emergency room where she was noted to have significant discomfort and pain in the lower back, some difficulty ambulating. Therefore, she was admitted for pain management and orthopedic consultation was obtained for further care and recommendation. PAST MEDICAL HISTORY: Per intake chart. PAST SURGICAL HISTORY: Per intake chart. MEDICATIONS: Per intake chart. PHYSICAL EXAMINATION: GENERAL: Patient is resting comfortably on bed. VITAL SIGNS: Afebrile. Stable vital signs. BACK: Low back examination showed tenderness to palpation. Patient does have sensation along the perineal area. IMAGING STUDIES: CT scan of the lumbar spine shows multilevel vertebral compression fractures at T12, L2, L3. ASSESSMENT: 1. Multilevel lumbar compression fracture, L2 and L3 vertebral body. 2. T12 thoracic vertebral body fracture. DISCUSSION: At this point, she may have had progression of the compression fractures. The only way to assess for that is to get an MRI to see if there is any acute verses chronic injury. The patient does have severe osteoporosis given her multiple fractures that she has in her vertebral body as well as pervious history of hip fracture. At this point, what we would like to do is MRI of lumbar spine and then follow up based on those results for further care and recommendations. Bo Deutshc M.D. DR: BILLIE JOB#: [id number] CC: JUSTYNA
[2020-08-01 09:17] LABS: ANION GAP 14 mmol/L (5-15); BLOOD UREA NITROGEN 9 mg/dL (7-18); CALCIUM 8.7 MG/DL (8.5-10.1); CARBON DIOXIDE 20 MMOL/L (21-32); CHLORIDE 106 MMOL/L (98-107); CREATININE 0.6 MG/DL (0.55-1.30); PHOSPHORUS 2.6 MG/DL (2.5-4.9); POTASSIUM 3.3 MMOL/L (3.5-5.1); SODIUM 140 MMOL/L (136-145)
--- NOTE | 2020-08-01 10:54 | CDS Physician Query ---
Clarification is required for compliance, coding accuracy, and to reflect severity of illness for this patient Dear Dr. Joan Cruz Date: 08/01/2020 [facility] Consultant/CDS Name: Ana Alex Clinical Documentation states: 80F with no sig PMH who presents for back pain, constipation and urinary incontinence. A: # Colon Distension 2/2 [place] Obstruction vs Ileus # Age indeterminate compression vertebral body deformities T12-L4 # Severe Lumbar Spinal Stenosis # Urinary Incontinence # Gastritis # Hyperglycemia # Hyperbilirubinemia NUTRITION DIAGNOSIS: Increased kcal/prot needs R/T underweight status and wound healing as evidenced by pt @ 81% IBW w/ BMI of 16.3, underweight per guidelines, admitted w/ sacral stage 2 wound. BMI: 14.3, Albumin 2.9 Please select the most appropriate option: [] Underweight [] Protein/Calorie Malnutrition [] Mild [] Moderate [] Severe [] Hypoalbuminemia [] Cachexia [] Intestinal malabsorption [] Other [] Unable to determine [] Not Applicable Present on Admission: [] Yes [] No [] Clinically Undetermined Physician signature Date Please also document in your Progress Notes and/or Discharge Summary and indicate if the condition was present on admission. MTDD
[2020-08-01 12:00] VITALS: BP 132/77
--- NOTE | 2020-08-01 13:01 | Surgery Progress Note ---
Surgery Progress Note Subjective Additional Comments ortho input noted tolerated clears comfortable passing flatus no pain Objective Last 24 Hour Vital Signs Date Time Temp Pulse Resp B/P (MAP) Pulse Ox O2 Delivery O2 Flow Rate FiO2 08/01/20 12:00 98.1 100 20 132/77 (95) 95 08/01/20 09:00 Room Air 08/01/20 08:10 99 Room Air 08/01/20 08:00 97.2 95 20 140/70 (93) 92 07/31/20 21:00 Room Air 07/31/20 20:00 98.1 109 22 137/75 (95) 92 07/31/20 16:00 98.1 100 20 147/79 (101) 94 I&O Intake and Output 07/31/20 08/01/20 19:00 07:00 Intake Total 1100 ml 200 ml Output Total 600 ml 1220 ml Balance 500 ml -1020 ml Intake Oral 500 ml IV Total 600 ml 200 ml Output Urine Total 300 ml 610 ml Post Void Residual 300 ml 610 ml Bladder Scan Volume Amount 367 628 31 0ml # Voids 4 1 Dressing: dry Wound: clean Cardiovascular: RSR Respiratory: clear Abdomen: soft, non-tender, present bowel sounds, non-distended Extremities: no edema, no tenderness, no cyanosis Laboratory Tests Test 08/01/20 08:50 White Blood Count 8.1 K/UL (4.8-10.8) Red Blood Count 4.09 M/UL (4.20-5.40) L Hemoglobin 11.7 G/DL (12.0-16.0) L Hematocrit 34.3 % (37.0-47.0) L Mean Corpuscular Volume 84 FL (80-99) Mean Corpuscular Hemoglobin 28.7 PG (27.0-31.0) Mean Corpuscular Hemoglobin Concent 34.3 G/DL (32.0-36.0) Red Cell Distribution Width 10.7 % (11.6-14.8) L Platelet Count 188 K/UL (150-450) Mean Platelet Volume 5.5 FL (6.5-10.1) L Neutrophils (%) (Auto) 69.8 % (45.0-75.0) Lymphocytes (%) (Auto) 13.2 % (20.0-45.0) L Monocytes (%) (Auto) 10.4 % (1.0-10.0) H Eosinophils (%) (Auto) 2.0 % (0.0-3.0) Basophils (%) (Auto) 4.6 % (0.0-2.0) H Erythrocyte Sedimentation Rate 41 MM/HR (0-30) H Sodium Level 140 MMOL/L (136-145) Potassium Level 3.3 MMOL/L (3.5-5.1) L Chloride Level 106 MMOL/L (98-107) Carbon Dioxide Level 20 MMOL/L (21-32) L Anion Gap 14 mmol/L (5-15) Blood Urea Nitrogen 9 mg/dL (7-18) Creatinine 0.6 MG/DL (0.55-1.30) Estimat Glomerular Filtration Rate > 60 mL/min (>60) Glucose Level 91 MG/DL (74-106) Calcium Level 8.7 MG/DL (8.5-10.1) Phosphorus Level 2.6 MG/DL (2.5-4.9) Magnesium Level 1.8 MG/DL (1.8-2.4) Free Triiodothyronine 2.5 pg/mL (2.3-4.2) Thyroid Stimulating Immunoglobulin Pending Plan Problems: (1) Urinary retention (2) Bowel obstruction Assessment & Plan: CT and KUB reviewed Exam benign. abd soft nt/nd, bs+ patient without complaints. unlikely obstruction no bm in days. likely constipated bowel care. start trial diet will follow with exam and recs DAILY ESTIMATED NEEDS: Needs based on Underweight, wound/ 35kg 30-40 kcals/kg 1328-8428 total kcals 1.25-1.5 g protein/kg 44-53 g total protein 25-30 mL/kg 875-1050 total fluid mLs NUTRITION DIAGNOSIS: Increased kcal/prot needs R/T underweight status and wound healing as evidenced by pt @ 81% IBW w/ BMI of 16.3, underweight per guidelines, admitted w/ sacral stage 2 wound. CURRENT DIET:CLEAR LIQUID DIET PO DIET RECOMMENDATIONS: Advance diet per MD -> liberalized REGULAR/ texture as tolerated ADDITIONAL RECOMMENDATIONS: * Daily calibrated bedscale wt * Monitor for BMs: admitted w/ constipation, refusing stool softners * Ensure CLEAR TID while on clear liquid diet * Wound healing: MVI x 1, Vit C 500mg QD VIANCA BID as tolerated * Advance diet in a timely manner: on CLD at this time * Monitor lytes, replete as needed (low K) ABDOMEN: Liver: Unremarkable. No mass. Gallbladder and bile ducts: Unremarkable. No calcified stones. No ductal dilation. Pancreas: Unremarkable. No mass. No ductal dilation. Spleen: Unremarkable. No splenomegaly. Adrenals: Unremarkable. No mass. Kidneys and ureters: See below. Stomach and bowel: Gastric wall thickening may be secondary to under distention versus gastritis. Mild gaseous distention of the colon. No evidence of obstruction. PELVIS: Appendix: Normal appendix. Bladder: Decompressed bladder. Reproductive: Retroverted uterus. ABDOMEN and PELVIS: Intraperitoneal space: Unremarkable. No free air. No significant fluid collection. Bones/joints: Age indeterminate compression deformities of the T12, L1, L2, L3, and L4 vertebral bodies. Arthritic contrast in the renal collecting systems. No hydronephrosis. Intramedullary eleazar and screw fixation of the right femur. Osteopenia. Degenerative changes of the spine. No dislocation. Soft tissues: Unremarkable. Vasculature: Unremarkable. No abdominal aortic aneurysm. Lymph nodes: Unremarkable. No enlarged lymph nodes. IMPRESSION: 1. Trace left pleural effusion. 2. Mild prominence of the wall of the distal esophagus may represent esophagitis. 3. Gastric wall thickening may be secondary to under distention versus gastritis. 4. Age indeterminate compression deformities of the T12, L1, L2, L3, and L4 vertebral bodies. 5. Mild gaseous distention of the colon. No evidence of obstruction. (3) Lumbar compression fracture Mikhail Maqruez Aug 01, 2020 13:01
--- NOTE | 2020-08-01 14:45 | Consultation ---
DATE OF CONSULTATION: 08/01/2020 ENDOCRINOLOGY CONSULTATION CONSULTING PHYSICIAN: Gurpreet Sneed MD REFERRING PHYSICIAN: Dr Ann Nelson REASON FOR CONSULTATION: Hyperthyroidism. HISTORY OF PRESENT ILLNESS: It is important to note that the patient is Sinhala speaking only, and most of the history is obtained from the review of the chart and medical records. The patient is an 80-year-old Sinhala female without any past medical history who presented to the hospital with back pain and bowel obstruction. The patient was noted to have compression fractures. As a part of the evaluation, the thyroid function was obtained, which surprisingly showed undetectable TSH and significantly elevated T4 of 2.57. She denies any palpitations, heat intolerance or tremor and/or neck pain. Therefore, Endocrinology was consulted. PAST MEDICAL HISTORY: None. PAST SURGICAL HISTORY: None. FAMILY HISTORY: Noncontributory. SOCIAL HISTORY: No smoking, alcohol, or drug use. ALLERGIES TO MEDICATIONS: None. MEDICATIONS: Medications as an outpatient none. REVIEW OF SYSTEMS: Unobtainable due to language barrier. Labs discussed in the history of present illness. PHYSICAL EXAMINATION: GENERAL: Temperature 98.1, heart rate 100, blood pressure 137/75, pulse ox 92%. HEENT: Pupils are equal and reactive to light. Sclerae are anicteric. NECK: Thyroid is palpable, firm without palpable nodules. HEART: Regular. LUNGS: Clear. ABDOMEN: Positive bowel sounds. EXTREMITIES: No clubbing, cyanosis, or edema. DIAGNOSIS: Hyperthyroidism, most likely secondary to underlying Graves disease. DISCUSSION: In order to rule out Graves disease will order thyroid peroxidase antibody and thyroid-stimulating immunoglobulin. Thyroid ultrasound will be obtained to look for gland hyperemia and increased vascularity, which will be suggestive of Graves gland. Free T3 will be checked, which is expected to be high in Graves. ESR will be checked in order to rule out possibility of subacute thyroiditis. I will wait for the results before starting the patient on antithyroid medication. We will follow the results. Thank you for the courtesy of this consultation. Gurpreet Sneed M.D. DR: Karen JOB#: [id number] CC: JUSTYNA
[2020-08-01 16:00] VITALS: BP 148/79
--- NOTE | 2020-08-01 16:52 | Diagnostic Imaging Report ---
EXAM: US Thyroid CLINICAL HISTORY: Reason For Exam: MASS. COMPARISON: None TECHNIQUE: Ultrasound examination of the thyroid includes grayscale images, and color and spectral doppler analysis. FINDINGS: Limited examination due to patient's inability to tolerate positioning. The right lobe of the thyroid measures 3.6 x 1.7 x 1 point centimeter. Echotexture is homogenous. There is a solid well-circumscribed hyperechoic nodule, not taller than wide, with posterior acoustic shadowing measuring up to 3 mm. The left lobe of the thyroid measures 2.9 x 1.3 x 1.47. Echotexture is homogenous. The isthmus appears unremarkable and measures 0.25 cm. Vascularity appears unremarkable. IMPRESSION: Limited examination due to patient's inability to tolerate examination. Within these limitations: SUBCENTIMETER RIGHT THYROID NODULE WITH TI-RADS 3 CLASSIFICATION. RECOMMEND FOLLOW-UP ULTRASOUND IN ONE YEAR. * TIRADS criteria reference Composition: Cystic or almost completely cystic - 0 points Spongiform - 0 points Mixed cystic and solid - 1 point Solid or almost completely solid - 2 points Echogenicity: Anechoic - 0 points Hyperechoic or isoechoic - 1 point Hypoechoic - 2 points Very hypoechoic - 3 points Shape: [id number] - 0 points [id number] - 3 points Margin: Smooth - 0 points Ill-defined - 0 points Lobulated or irregular - 2 points Extra-thyroidal extension - 3 points Echogenic Foci: None or large comet-tail artifacts - 0 points Macrocalcifications - 1 point Peripheral (rim) calcifications - 2 points Punctate echogenic foci - 3 points
--- NOTE | 2020-08-01 18:38 | General Progress Note ---
Subjective Date patient seen: Aug 01, 2020 Time patient seen: 10:39 ROS Limited/Unobtainable: Yes Constitutional: Denies: no symptoms, chills, diaphoresis, fever, malaise, weakness, other HEENT: Denies: no symptoms, eye pain, blurred vision, tearing, double vision, ear pain, ear discharge, nose pain, nose congestion, throat pain, throat swelling, mouth pain, mouth swelling, other Cardiovascular: Denies: no symptoms, chest pain, edema, irregular heart rate, lightheadedness, palpitations, syncope, other Neurologic/Psychiatric: Denies: no symptoms, anxiety, depressed, emotional problems, headache, numbness, paresthesia, pre-existing deficit, seizure, tingling, tremors, weakness, other Allergies: Coded Allergies: No Known Allergies (Unverified , 07/30/20) Subjective - Patient remains confused - Assistance from nursing staff to communicate with patient who says she is feeling well - Refusing blood draws, imaging, food, and further care despite encouragement Objective Last 24 Hour Vital Signs Date Time Temp Pulse Resp B/P (MAP) Pulse Ox O2 Delivery O2 Flow Rate FiO2 08/01/20 16:00 98.1 92 20 148/79 (102) 95 08/01/20 12:00 98.1 100 20 132/77 (95) 95 08/01/20 09:00 Room Air 08/01/20 08:10 99 Room Air 08/01/20 08:00 97.2 95 20 140/70 (93) 92 07/31/20 21:00 Room Air 07/31/20 20:00 98.1 109 22 137/75 (95) 92 Intake and Output 07/31/20 08/01/20 19:00 07:00 Intake Total 1100 ml 200 ml Output Total 600 ml 1220 ml Balance 500 ml -1020 ml Intake Oral 500 ml IV Total 600 ml 200 ml Output Urine Total 300 ml 610 ml Post Void Residual 300 ml 610 ml Bladder Scan Volume Amount 367 628 31 0ml # Voids 4 1 Laboratory Tests 08/01/20 08:50: White Blood Count 8.1, Red Blood Count 4.09L, Hemoglobin 11.7L, Hematocrit 34.3L , Mean Corpuscular Volume 84, Mean Corpuscular Hemoglobin 28.7, Mean Corpuscular Hemoglobin Concent 34.3, Red Cell Distribution Width 10.7L, Platelet Count 188, Mean Platelet Volume 5.5L, Neutrophils (%) (Auto) 69.8, Lymphocytes (%) (Auto) 13.2L, Monocytes (%) (Auto) 10.4H, Eosinophils (%) (Auto) 2.0, Basophils (%) (Auto) 4.6H, Erythrocyte Sedimentation Rate 41H, Sodium Level 140, Potassium Level 3.3L, Chloride Level 106, Carbon Dioxide Level 20L, Anion Gap 14, Blood Urea Nitrogen 9, Creatinine 0.6, Estimat Glomerular Filtration Rate > 60, Glucose Level 91, Calcium Level 8.7, Phosphorus Level 2.6, Magnesium Level 1.8, Free Triiodothyronine 2.5, Thyroid Stimulating Immunoglobulin [Pending] Height (Feet): 5 Height (Inches): 0.00 Weight (Pounds): 70 General Appearance: no apparent distress, alert EENT: PERRL/EOMI, other Neck: supple Cardiovascular: normal rate, regular rhythm Respiratory/Chest: normal breath sounds Abdomen: normal bowel sounds, non tender Extremities: normal range of motion - in upper extremities Skin: warm/dry Assessment/Plan Assessment/Plan: Mrs. Horner is a 80F with no sig PMH who presents for back pain, constipation and urinary incontinence. #Colon Distension 2' Ileus #Constipation - CT Abdomen - consistent with gastritis and Xray Abdomen consistent Ileus - Continue ppi - Bowel Regimen - Serial abdomen exams - Advanced diet however patient dislikes food - Surgery Following, appreciate recommendations - PT #Compression Fractures with vertebral body deformities T12-L4 #Severe Lumbar Spinal Stenosis - CT abdomen with deformities appreciated - Neurosurgery following with recommendations for MRI - Patient is refusing MRI #Urinary Retention - Serial bladder scan - UA wnl - Refusing medications and lauren #Hyperthyroid - Consider rechecking TSH level following hospitalization - Endocrine consult with Dr. Sneed - Thyroid US limited - Nodule observed that will need repeat US in 1 yr GI: PPI IVF: D5NS 100cc DVT: Lovenox 40 mg subq Diet: Advance diet as tolerate CODE: Full code, will discuss with MERLINEK Dsipo: Would benefit from SNF placement Time spent on this encounter was 45 minutes with 25 minutes dedicated to counseling and care coordination. Additionally reviewed images, labs, and prior records. Case discussed with RN, charge nurse, and CM. Time of this note may not reflect the time patient was seen. Joan Cruz M.D. Aug 01, 2020 18:38
[2020-08-01 20:00] VITALS: BP 130/68
[2020-08-01] MEDS: Enoxaparin 40mg Inj SUBQ SCH (21:00)
[2020-08-02] VITALS: BP 129/72
[2020-08-02 04:00] VITALS: BP 144/78
[2020-08-02] MEDS: D5 1/2NS 1,000 ML IV SCH ×2 (04:00→13:26)
--- NOTE | 2020-08-02 06:27 | General Progress Note ---
Subjective Allergies: Coded Allergies: No Known Allergies (Unverified , 07/30/20) All Systems: reviewed and negative except above Subjective events noted RN assisted me with translation thyroid US results - unremarkable Objective Last 24 Hour Vital Signs Date Time Temp Pulse Resp B/P (MAP) Pulse Ox O2 Delivery O2 Flow Rate FiO2 08/02/20 04:00 97.7 86 18 144/78 (100) 95 08/02/20 00:00 97.7 88 24 129/72 (91) 95 08/01/20 21:00 Room Air 08/01/20 20:00 97.9 102 20 130/68 (88) 96 08/01/20 16:00 98.1 92 20 148/79 (102) 95 08/01/20 12:00 98.1 100 20 132/77 (95) 95 08/01/20 09:00 Room Air 08/01/20 08:10 99 Room Air 08/01/20 08:00 97.2 95 20 140/70 (93) 92 Intake and Output 08/01/20 08/02/20 19:00 07:00 Intake Total 300 ml Output Total 322 ml 289 ml Balance -22 ml -289 ml Intake Oral 300 ml Post Void Residual 322 ml 289 ml Bladder Scan Volume Amount 201-300 ml 76-100 ml 76-100 ml 201-300 ml Laboratory Tests 08/01/20 08:50: White Blood Count 8.1, Red Blood Count 4.09L, Hemoglobin 11.7L, Hematocrit 34.3L , Mean Corpuscular Volume 84, Mean Corpuscular Hemoglobin 28.7, Mean Corpuscular Hemoglobin Concent 34.3, Red Cell Distribution Width 10.7L, Platelet Count 188, Mean Platelet Volume 5.5L, Neutrophils (%) (Auto) 69.8, Lymphocytes (%) (Auto) 13.2L, Monocytes (%) (Auto) 10.4H, Eosinophils (%) (Auto) 2.0, Basophils (%) (Auto) 4.6H, Erythrocyte Sedimentation Rate 41H, Sodium Level 140, Potassium Level 3.3L, Chloride Level 106, Carbon Dioxide Level 20L, Anion Gap 14, Blood Urea Nitrogen 9, Creatinine 0.6, Estimat Glomerular Filtration Rate > 60, Glucose Level 91, Calcium Level 8.7, Phosphorus Level 2.6, Magnesium Level 1.8, Free Triiodothyronine 2.5, Thyroid Stimulating Immunoglobulin [Pending] Height (Feet): 5 Height (Inches): 0.00 Weight (Pounds): 70 General Appearance: no apparent distress Neck: normal alignment Respiratory/Chest: lungs clear Abdomen: normal bowel sounds Objective Current Medications Medications (Trade) Dose Ordered Sig/Stefano Route PRN Reason Start Time Stop Time Status Last Admin Dose Admin Acetaminophen (Tylenol) 650 mg Q4H PRN ORAL Temp >100.5 07/30/20 15:00 08/29/20 14:59 07/30/20 16:22 Albuterol/ Ipratropium (Albuterol/ Ipratropium) 3 ml Q6H PRN HHN Shortness of Breath 07/30/20 15:00 08/04/20 14:59 Ascorbic Acid (Vitamin C) 500 mg DAILY ORAL 08/02/20 09:00 09/01/20 08:59 Dextrose (Dextrose 50%) 25 ml Q30M PRN IV Hypoglycemia 07/30/20 15:00 10/28/20 14:59 Dextrose (Dextrose 50%) 50 ml Q30M PRN IV Hypoglycemia 07/30/20 15:00 10/28/20 14:59 Dextrose/Sodium Chloride 1,000 ml @ 100 mls/hr Q10H IV 07/31/20 12:00 08/30/20 11:59 07/31/20 20:51 Docusate Sodium (Colace) 100 mg TWICE A DAY ORAL 08/01/20 09:00 08/31/20 08:59 Enoxaparin Sodium (Lovenox) 40 mg Q24H SUBQ 07/30/20 21:00 10/28/20 20:59 07/31/20 20:14 Magnesium Hydroxide (Mom) 30 ml HSPRN PRN ORAL Constipation 07/31/20 21:30 08/30/20 21:29 Morphine Sulfate (Morphine Sulfate) 2 mg Q4H PRN IVP Severe Pain (Pain Scale 7-10) 07/30/20 15:00 08/06/20 14:59 07/31/20 20:14 Multivitamins (Multivitamins) 1 tab DAILY ORAL 08/02/20 09:00 09/01/20 08:59 Ondansetron HCl (Zofran) 4 mg Q6H PRN IVP Nausea & Vomiting 07/30/20 15:00 08/29/20 14:59 Pantoprazole (Protonix) 40 mg DAILY ORAL 07/30/20 15:00 08/29/20 14:59 07/31/20 09:12 Assessment/Plan Problem List: (1) Hyperthyroidism ICD Codes: E05.90 - Thyrotoxicosis, unspecified without thyrotoxic crisis or storm SNOMED: 22905011 (2) Urinary retention ICD Codes: R33.9 - Retention of urine, unspecified SNOMED: 104295899 (3) Bowel obstruction ICD Codes: K56.609 - Unspecified intestinal obstruction, unspecified as to partial versus complete obstruction SNOMED: 86187245 (4) Lumbar compression fracture ICD Codes: S32.000A - Wedge compression fracture of unspecified lumbar vertebra, initial encounter for closed fracture SNOMED: 751041395 Assessment/Plan: hyperthyroidism is most likely due to Graves' disease thyroid gland is "not tender" on exam therefore sub acute thyroiditis is less likely will start Tapazole 10 mg daily follow thyroid function in 3 weeks ATPO and TSI sent - pending Gurpreet Sneed MD Aug 02, 2020 06:27
[2020-08-02 08:00] VITALS: BP 118/63
[2020-08-02] MEDS: methIMAzole 10mg tab ORAL SCH (08:52)
[2020-08-02] MEDS: Docusate 100mg cap ORAL SCH ×2 (08:52→16:59)
[2020-08-02] MEDS: Ascorbic Acid 500mg tab ORAL SCH (08:52)
--- NOTE | 2020-08-02 10:28 | General Progress Note ---
Subjective Date patient seen: Aug 02, 2020 Time patient seen: 08:56 Constitutional: Denies: no symptoms, chills, diaphoresis, fever, malaise, weakness, other HEENT: Denies: no symptoms, eye pain, blurred vision, tearing, double vision, ear pain, ear discharge, nose pain, nose congestion, throat pain, throat swelling, mouth pain, mouth swelling, other Cardiovascular: Denies: no symptoms, chest pain, edema, irregular heart rate, lightheadedness, palpitations, syncope, other Respiratory: Denies: no symptoms, cough, orthopnea, shortness of breath, SOB with excertion, SOB at rest, sputum, stridor, wheezing, other Gastrointestinal/Abdominal: Denies: no symptoms, abdomen distended, abdominal pain, black stools, tarry stools, blood in stool, constipated, diarrhea, difficulty swallowing, nausea, poor appetite, poor fluid intake, rectal bleeding, vomiting, other Genitourinary: Denies: no symptoms, burning, discharge, frequency, flank pain, hematuria, incontinence, pain, urgency, other Neurologic/Psychiatric: Denies: no symptoms, anxiety, depressed, emotional problems, headache, numbness, paresthesia, pre-existing deficit, seizure, tingling, tremors, weakness, other Endocrine: Denies: no symptoms, excessive sweating, flushing, intolerance to cold, intolerance to heat, increased hunger, increased thirst, increased urine, unexplained weight gain, unexplained weight loss, other Hematologic/Lymphatic: Denies: no symptoms, anemia, easy bleeding, easy bruising, other Allergies: Coded Allergies: No Known Allergies (Unverified , 07/30/20) Subjective - Assistance from chilkoot speaking staff to communicate with patient - Doing well at this time, no complaints of n/v or constipation - Refused labs, IV, and MRI - Evaluated by Endocrine and started on Methimazole Objective Last 24 Hour Vital Signs Date Time Temp Pulse Resp B/P (MAP) Pulse Ox O2 Delivery O2 Flow Rate FiO2 08/02/20 08:00 98.0 88 18 118/63 (81) 95 08/02/20 04:00 97.7 86 18 144/78 (100) 95 08/02/20 00:00 97.7 88 24 129/72 (91) 95 08/01/20 21:00 Room Air 08/01/20 20:00 97.9 102 20 130/68 (88) 96 08/01/20 16:00 98.1 92 20 148/79 (102) 95 08/01/20 12:00 98.1 100 20 132/77 (95) 95 Intake and Output 08/01/20 08/02/20 19:00 07:00 Intake Total 300 ml Output Total 322 ml 289 ml Balance -22 ml -289 ml Intake Oral 300 ml Post Void Residual 322 ml 289 ml Bladder Scan Volume Amount 201-300 ml 76-100 ml 76-100 ml 201-300 ml # Voids 2 Height (Feet): 5 Height (Inches): 0.00 Weight (Pounds): 70 General Appearance: no apparent distress, alert EENT: PERRL/EOMI, other - cataract in eye Neck: supple Cardiovascular: regular rhythm Respiratory/Chest: lungs clear Abdomen: non tender, soft Neurologic: chemist proteins II-XII grossly normal, alert, other - dementia Skin: warm/dry Assessment/Plan Assessment/Plan: Mrs. Horner is a 80F with no sig PMH who presents for back pain, constipation and urinary incontinence. #Colon Distension 2' Ileus #Constipation - CT Abdomen - consistent with gastritis and Xray Abdomen consistent Ileus - Continue ppi - Bowel Regimen - Serial abdomen exams - Advanced diet however patient dislikes food - Surgery Following, appreciate recommendations - PT #Compression Fractures with vertebral body deformities T12-L4 #Severe Lumbar Spinal Stenosis - CT abdomen with deformities appreciated - Neurosurgery following with recommendations for MRI - Patient is refusing MRI - Denies pain #Urinary Retention - Serial bladder scan - UA wnl - Refusing medications and lauren #Hyperthyroid, concern for Graves - Endocrine consult with Dr. Sneed - Thyroid US limited - Nodule observed that will need repeat US in 1 yr - Initiated Methimzaole 10mg qd, APTO/TSI pending #Dementia Patient is forgetful, able to answer simple questions GI: PPI DVT: Lovenox 40 mg subq Diet: Advance diet as tolerate CODE: Full code, discussed with DAVE Page, grand-daughter ) who will discuss further with her uncle Dsipo: Would benefit from SNF placement, CM to discuss with family Time spent on this encounter is 35 minutes with 18 minutes spent with care coordination with discussion with Nursing Staff and CM. Time of this note may not reflect the time patient was seen. Joan Cruz M.D. Aug 02, 2020 10:28
[2020-08-02 12:00] VITALS: BP 131/72
--- NOTE | 2020-08-02 14:44 | Surgery Progress Note ---
Surgery Progress Note Subjective Symptoms: improved, tolerating diet, voiding well, passing flatus, BM Objective Last 24 Hour Vital Signs Date Time Temp Pulse Resp B/P (MAP) Pulse Ox O2 Delivery O2 Flow Rate FiO2 08/02/20 09:00 Room Air 08/02/20 08:00 98.0 88 18 118/63 (81) 95 08/02/20 04:00 97.7 86 18 144/78 (100) 95 08/02/20 00:00 97.7 88 24 129/72 (91) 95 08/01/20 21:00 Room Air 08/01/20 20:00 97.9 102 20 130/68 (88) 96 08/01/20 16:00 98.1 92 20 148/79 (102) 95 I&O Intake and Output 08/01/20 08/02/20 18:59 06:59 Intake Total 300 ml Output Total 322 ml 289 ml Balance -22 ml -289 ml Intake Oral 300 ml Post Void Residual 322 ml 289 ml Bladder Scan Volume Amount 201-300 ml 76-100 ml 76-100 ml 201-300 ml # Voids 2 Cardiovascular: RSR Respiratory: clear Abdomen: soft, non-tender, present bowel sounds, non-distended Extremities: no edema, no tenderness, no cyanosis Plan Problems: (1) Urinary retention (2) Bowel obstruction Assessment & Plan: CT and KUB reviewed Exam benign. abd soft nt/nd, bs+ patient without complaints. unlikely obstruction no bm in days. likely constipated bowel care. start trial diet will follow with exam and recs DAILY ESTIMATED NEEDS: Needs based on Underweight, wound/ 35kg 30-40 kcals/kg 7039-4970 total kcals 1.25-1.5 g protein/kg 44-53 g total protein 25-30 mL/kg 875-1050 total fluid mLs NUTRITION DIAGNOSIS: Increased kcal/prot needs R/T underweight status and wound healing as evidenced by pt @ 81% IBW w/ BMI of 16.3, underweight per guidelines, admitted w/ sacral stage 2 wound. CURRENT DIET:CLEAR LIQUID DIET PO DIET RECOMMENDATIONS: Advance diet per MD -> liberalized REGULAR/ texture as tolerated ADDITIONAL RECOMMENDATIONS: * Daily calibrated bedscale wt * Monitor for BMs: admitted w/ constipation, refusing stool softners * Ensure CLEAR TID while on clear liquid diet * Wound healing: MVI x 1, Vit C 500mg QD VIANCA BID as tolerated * Advance diet in a timely manner: on CLD at this time * Monitor lytes, replete as needed (low K) ABDOMEN: Liver: Unremarkable. No mass. Gallbladder and bile ducts: Unremarkable. No calcified stones. No ductal dilation. Pancreas: Unremarkable. No mass. No ductal dilation. Spleen: Unremarkable. No splenomegaly. Adrenals: Unremarkable. No mass. Kidneys and ureters: See below. Stomach and bowel: Gastric wall thickening may be secondary to under distention versus gastritis. Mild gaseous distention of the colon. No evidence of obstruction. PELVIS: Appendix: Normal appendix. Bladder: Decompressed bladder. Reproductive: Retroverted uterus. ABDOMEN and PELVIS: Intraperitoneal space: Unremarkable. No free air. No significant fluid collection. Bones/joints: Age indeterminate compression deformities of the T12, L1, L2, L3, and L4 vertebral bodies. Arthritic contrast in the renal collecting systems. No hydronephrosis. Intramedullary eleazar and screw fixation of the right femur. Osteopenia. Degenerative changes of the spine. No dislocation. Soft tissues: Unremarkable. Vasculature: Unremarkable. No abdominal aortic aneurysm. Lymph nodes: Unremarkable. No enlarged lymph nodes. IMPRESSION: 1. Trace left pleural effusion. 2. Mild prominence of the wall of the distal esophagus may represent esophagitis. 3. Gastric wall thickening may be secondary to under distention versus gastritis. 4. Age indeterminate compression deformities of the T12, L1, L2, L3, and L4 vertebral bodies. 5. Mild gaseous distention of the colon. No evidence of obstruction. (3) Lumbar compression fracture Mikhail Marquez Aug 02, 2020 14:44
[2020-08-02 16:00] VITALS: BP 130/61
[2020-08-02 20:00] VITALS: BP 124/69
[2020-08-02] MEDS: Enoxaparin 30mg Inj SUBQ SCH (20:34)
[2020-08-03] VITALS: BP 124/75
[2020-08-03 04:00] VITALS: BP 142/83
--- NOTE | 2020-08-03 07:12 | General Progress Note ---
Subjective ROS Limited/Unobtainable: Yes Allergies: Coded Allergies: No Known Allergies (Unverified , 07/30/20) Subjective events noted refusing meds Objective Last 24 Hour Vital Signs Date Time Temp Pulse Resp B/P (MAP) Pulse Ox O2 Delivery O2 Flow Rate FiO2 08/03/20 04:00 97.5 93 20 142/83 (102) 96 08/03/20 00:00 97.8 101 22 124/75 (91) 95 08/02/20 20:51 Room Air 08/02/20 20:00 98.0 93 20 124/69 (87) 93 08/02/20 16:00 98.1 78 20 130/61 (84) 95 08/02/20 12:00 98.2 87 20 131/72 (91) 94 08/02/20 09:00 Room Air 08/02/20 08:00 98.0 88 18 118/63 (81) 95 Intake and Output 08/02/20 08/03/20 19:00 07:00 Intake Total 300 ml 360 ml Output Total 257 ml 135 ml Balance 43 ml 225 ml Intake Oral 300 ml Other 360 ml Post Void Residual 257 ml 135 ml Bladder Scan Volume Amount 201-300 ml 101-150 ml <10 ml Height (Feet): 5 Height (Inches): 0.00 Weight (Pounds): 70 General Appearance: no apparent distress Neck: normal alignment Cardiovascular: normal rate Respiratory/Chest: lungs clear Abdomen: normal bowel sounds Pelvis: normal external exam Objective Current Medications Medications (Trade) Dose Ordered Sig/Stefano Route PRN Reason Start Time Stop Time Status Last Admin Dose Admin Acetaminophen (Tylenol) 650 mg Q4H PRN ORAL Temp >100.5 07/30/20 15:00 08/29/20 14:59 07/30/20 16:22 Albuterol/ Ipratropium (Albuterol/ Ipratropium) 3 ml Q6H PRN HHN Shortness of Breath 07/30/20 15:00 08/04/20 14:59 Ascorbic Acid (Vitamin C) 500 mg DAILY ORAL 08/02/20 09:00 09/01/20 08:59 Dextrose (Dextrose 50%) 25 ml Q30M PRN IV Hypoglycemia 07/30/20 15:00 10/28/20 14:59 Dextrose (Dextrose 50%) 50 ml Q30M PRN IV Hypoglycemia 07/30/20 15:00 10/28/20 14:59 Dextrose/Sodium Chloride 1,000 ml @ 100 mls/hr Q10H IV 07/31/20 12:00 08/30/20 11:59 07/31/20 20:51 Docusate Sodium (Colace) 100 mg TWICE A DAY ORAL 08/01/20 09:00 08/31/20 08:59 Enoxaparin Sodium (Lovenox) 30 mg Q24H SUBQ 08/02/20 21:00 10/31/20 20:59 Magnesium Hydroxide (Mom) 30 ml HSPRN PRN ORAL Constipation 07/31/20 21:30 08/30/20 21:29 Methimazole (Tapazole) 10 mg DAILY ORAL 08/02/20 09:00 09/01/20 08:59 Morphine Sulfate (Morphine Sulfate) 2 mg Q4H PRN IVP Severe Pain (Pain Scale 7-10) 07/30/20 15:00 08/06/20 14:59 07/31/20 20:14 Multivitamins (Multivitamins) 1 tab DAILY ORAL 08/02/20 09:00 09/01/20 08:59 Ondansetron HCl (Zofran) 4 mg Q6H PRN IVP Nausea & Vomiting 07/30/20 15:00 08/29/20 14:59 Pantoprazole (Protonix) 40 mg DAILY ORAL 07/30/20 15:00 08/29/20 14:59 07/31/20 09:12 Assessment/Plan Problem List: (1) Hyperthyroidism ICD Codes: E05.90 - Thyrotoxicosis, unspecified without thyrotoxic crisis or storm SNOMED: 01517019 (2) Urinary retention ICD Codes: R33.9 - Retention of urine, unspecified SNOMED: 543976363 (3) Bowel obstruction ICD Codes: K56.609 - Unspecified intestinal obstruction, unspecified as to partial versus complete obstruction SNOMED: 52542065 (4) Lumbar compression fracture ICD Codes: S32.000A - Wedge compression fracture of unspecified lumbar vertebra, initial encounter for closed fracture SNOMED: 874681658 Assessment/Plan: hyperthyroidism is most likely due to Graves' disease thyroid gland is "not tender" on exam therefore sub acute thyroiditis is less likely continue Tapazole 10 mg daily follow thyroid function in 3 weeks ATPO and TSI sent - pending Gurpreet Sneed MD Aug 03, 2020 07:12
[2020-08-03 08:00] VITALS: BP 118/71
[2020-08-03] MEDS: Ascorbic Acid 500mg tab ORAL SCH (09:00)
[2020-08-03] MEDS: methIMAzole 10mg tab ORAL SCH (09:00)
[2020-08-03] MEDS: Docusate 100mg cap ORAL SCH ×2 (09:00→17:13)
[2020-08-03] MEDS: D5 1/2NS 1,000 ML IV SCH ×3 (09:18→20:00)
--- NOTE | 2020-08-03 10:52 | General Progress Note ---
Subjective Date patient seen: Aug 03, 2020 ROS Limited/Unobtainable: Yes - Pateint confused Constitutional: Denies: diaphoresis, fever Cardiovascular: Denies: chest pain, palpitations Respiratory: Denies: shortness of breath, SOB with excertion, SOB at rest Genitourinary: Denies: discharge, frequency, flank pain Neurologic/Psychiatric: Denies: depressed, emotional problems, headache Allergies: Coded Allergies: No Known Allergies (Unverified , 07/30/20) Objective Last 24 Hour Vital Signs Date Time Temp Pulse Resp B/P (MAP) Pulse Ox O2 Delivery O2 Flow Rate FiO2 08/03/20 09:00 Room Air 08/03/20 08:00 97.7 96 19 118/71 (87) 96 08/03/20 04:00 97.5 93 20 142/83 (102) 96 08/03/20 00:00 97.8 101 22 124/75 (91) 95 08/02/20 20:51 Room Air 08/02/20 20:00 98.0 93 20 124/69 (87) 93 08/02/20 16:00 98.1 78 20 130/61 (84) 95 08/02/20 12:00 98.2 87 20 131/72 (91) 94 l Intake and Output 08/02/20 08/03/20 19:00 07:00 Intake Total 300 ml 360 ml Output Total 257 ml 135 ml Balance 43 ml 225 ml Intake Oral 300 ml Other 360 ml Post Void Residual 257 ml 135 ml Bladder Scan Volume Amount 201-300 ml 101-150 ml <10 ml Height (Feet): 5 Height (Inches): 0.00 Weight (Pounds): 70 General Appearance: no apparent distress, lethargic, confused, agitated, combative EENT: normal ENT inspection Neck: normal alignment, normal inspection Cardiovascular: normal rate, regular rhythm, regularly irregular, no JVD Respiratory/Chest: chest wall non-tender, lungs clear, normal breath sounds, no respiratory distress Abdomen: normal bowel sounds, non tender, soft, no organomegaly Pelvis: normal external exam Extremities: normal range of motion, non-tender, normal inspection Edema: no edema noted Arm (L), no edema noted Arm (R), no edema noted Leg (L), no edema noted Leg (R), no edema noted Pedal (L), no edema noted Pedal (R), no edema noted Generalized Neurologic: abnormal gait, alert, responsive, disoriented Skin: normal pigmentation, warm/dry, no diaphoresis Assessment/Plan Problem List: (1) Bowel obstruction ICD Codes: K56.609 - Unspecified intestinal obstruction, unspecified as to partial versus complete obstruction SNOMED: 35125755 (2) Urinary retention ICD Codes: R33.9 - Retention of urine, unspecified SNOMED: 800933082 (3) Lumbar compression fracture ICD Codes: S32.000A - Wedge compression fracture of unspecified lumbar vertebra, initial encounter for closed fracture SNOMED: 001325038 (4) Hyperthyroidism ICD Codes: E05.90 - Thyrotoxicosis, unspecified without thyrotoxic crisis or storm SNOMED: 64524927 Assessment/Plan: Mrs. Horner is a 80F with no sig PMH who presents for back pain, constipation and urinary incontinence. #Colon Distension 2' Ileus #Constipation - CT Abdomen - consistent with gastritis and Xray Abdomen consistent Ileus - Continue ppi - Bowel Regimen - Serial abdomen exams - Advanced diet however patient dislikes food - Surgery Following, appreciate recommendations - PT #Compression Fractures with vertebral body deformities T12-L4 #Severe Lumbar Spinal Stenosis - CT abdomen with deformities appreciated - Neurosurgery following with recommendations for MRI - Patient is refusing MRI - Denies pain #Urinary Retention - Serial bladder scan - UA wnl - Refusing medications and lauren #Hyperthyroid, concern for Graves - Endocrine consult with Dr. Sneed - Thyroid US limited - Nodule observed that will need repeat US in 1 yr - Initiated Methimzaole 10mg qd, APTO/TSI pending #Dementia Patient is forgetful, able to answer simple questions GI: PPI DVT: Lovenox 40 mg subq Diet: Advance diet as tolerate CODE: Full code, discussed with DAVE Page, grand-daughter ([phone]) who will discuss further with her uncle Dsipo: Would benefit from SNF placement, CM to discuss with family Time spent on this encounter is 36 minutes with 20 minutes spent with care coordination with discussion with Nursing Staff and CM. Time of this note may not reflect the time patient was seen. Jonathan New M.D. Aug 03, 2020 10:52
[2020-08-03 12:00] VITALS: BP 112/70
--- NOTE | 2020-08-03 12:26 | Surgery Progress Note ---
Surgery Progress Note Subjective Symptoms: improved, tolerating diet, voiding well, passing flatus, BM Objective Last 24 Hour Vital Signs Date Time Temp Pulse Resp B/P (MAP) Pulse Ox O2 Delivery O2 Flow Rate FiO2 08/03/20 09:00 Room Air 08/03/20 08:00 97.7 96 19 118/71 (87) 96 08/03/20 04:00 97.5 93 20 142/83 (102) 96 08/03/20 00:00 97.8 101 22 124/75 (91) 95 08/02/20 20:51 Room Air 08/02/20 20:00 98.0 93 20 124/69 (87) 93 08/02/20 16:00 98.1 78 20 130/61 (84) 95 I&O Intake and Output 08/02/20 08/03/20 19:00 07:00 Intake Total 300 ml 360 ml Output Total 257 ml 135 ml Balance 43 ml 225 ml Intake Oral 300 ml Other 360 ml Post Void Residual 257 ml 135 ml Bladder Scan Volume Amount 201-300 ml 101-150 ml <10 ml Dressing: dry Cardiovascular: RSR Respiratory: clear Abdomen: soft, non-tender, present bowel sounds Extremities: no edema, no tenderness, no cyanosis Plan Problems: (1) Urinary retention (2) Bowel obstruction Assessment & Plan: CT and KUB reviewed Exam benign. abd soft nt/nd, bs+ patient without complaints. unlikely obstruction no bm in days. likely constipated bowel care. start trial diet will follow with exam and recs DAILY ESTIMATED NEEDS: Needs based on Underweight, wound/ 35kg 30-40 kcals/kg 0868-5556 total kcals 1.25-1.5 g protein/kg 44-53 g total protein 25-30 mL/kg 875-1050 total fluid mLs NUTRITION DIAGNOSIS: Increased kcal/prot needs R/T underweight status and wound healing as evidenced by pt @ 81% IBW w/ BMI of 16.3, underweight per guidelines, admitted w/ sacral stage 2 wound. CURRENT DIET:CLEAR LIQUID DIET PO DIET RECOMMENDATIONS: Advance diet per MD -> liberalized REGULAR/ texture as tolerated ADDITIONAL RECOMMENDATIONS: * Daily calibrated bedscale wt * Monitor for BMs: admitted w/ constipation, refusing stool softners * Ensure CLEAR TID while on clear liquid diet * Wound healing: MVI x 1, Vit C 500mg QD VIANCA BID as tolerated * Advance diet in a timely manner: on CLD at this time * Monitor lytes, replete as needed (low K) ABDOMEN: Liver: Unremarkable. No mass. Gallbladder and bile ducts: Unremarkable. No calcified stones. No ductal dilation. Pancreas: Unremarkable. No mass. No ductal dilation. Spleen: Unremarkable. No splenomegaly. Adrenals: Unremarkable. No mass. Kidneys and ureters: See below. Stomach and bowel: Gastric wall thickening may be secondary to under distention versus gastritis. Mild gaseous distention of the colon. No evidence of obstruction. PELVIS: Appendix: Normal appendix. Bladder: Decompressed bladder. Reproductive: Retroverted uterus. ABDOMEN and PELVIS: Intraperitoneal space: Unremarkable. No free air. No significant fluid collection. Bones/joints: Age indeterminate compression deformities of the T12, L1, L2, L3, and L4 vertebral bodies. Arthritic contrast in the renal collecting systems. No hydronephrosis. Intramedullary eleazar and screw fixation of the right femur. Osteopenia. Degenerative changes of the spine. No dislocation. Soft tissues: Unremarkable. Vasculature: Unremarkable. No abdominal aortic aneurysm. Lymph nodes: Unremarkable. No enlarged lymph nodes. IMPRESSION: 1. Trace left pleural effusion. 2. Mild prominence of the wall of the distal esophagus may represent esophagitis. 3. Gastric wall thickening may be secondary to under distention versus gastritis. 4. Age indeterminate compression deformities of the T12, L1, L2, L3, and L4 vertebral bodies. 5. Mild gaseous distention of the colon. No evidence of obstruction. (3) Lumbar compression fracture (4) Hyperthyroidism Assessment & Plan: The right lobe of the thyroid measures 3.6 x 1.7 x 1 point centimeter. Echotexture is homogenous. There is a solid well-circumscribed hyperechoic nodule, not taller than wide, with posterior acoustic shadowing measuring up to 3 mm. The left lobe of the thyroid measures 2.9 x 1.3 x 1.47. Echotexture is homogenous. The isthmus appears unremarkable and measures 0.25 cm. Vascularity appears unremarkable. IMPRESSION: Limited examination due to patient's inability to tolerate examination. Within these limitations: SUBCENTIMETER RIGHT THYROID NODULE WITH TI-RADS 3 CLASSIFICATION. RECOMMEND FOLLOW-UP ULTRASOUND IN ONE YEAR. * TIRADS criteria reference Composition: Cystic or almost completely cystic - 0 points Spongiform - 0 points Mixed cystic and solid - 1 point Solid or almost completely solid - 2 points Echogenicity: Anechoic - 0 points Hyperechoic or isoechoic - 1 point Hypoechoic - 2 points Very hypoechoic - 3 points Shape: [id number] - 0 points [id number] - 3 points Margin: Smooth - 0 points Ill-defined - 0 points Lobulated or irregular - 2 points Extra-thyroidal extension - 3 points Echogenic Foci: None or large comet-tail artifacts - 0 points Macrocalcifications - 1 point Peripheral (rim) calcifications - 2 points Punctate echogenic foci - 3 points Mikhail Marquez Aug 03, 2020 12:26
[2020-08-03 16:00] VITALS: BP 130/68
[2020-08-03] MEDS ORDERED: TAPAZOLE10 MG ORAL (16:19)
--- NOTE | 2020-08-03 16:27 | Discharge Summary ---
Discharge Summary Hospital Course Date of Admission Jul 30, 2020 at 11:57 Date of Discharge 08/03/2020 Admitting Diagnosis bowel obstruction, urinary retention HPI Mrs. Horner is a 80F with no sig PMH who was BIBA for back pain and urinary incontinence. Patient is Georgian speaking only and a real estate accountant over the phone was used. Patient reports approx. 5 days ago suffering acute lower back pain that was exacerbated after she lifted "heavy things." Her back pain is dull, rates 8-10/10, non-radiating, no alleviating factors, but bending over makes it worse. Denies any LE weakness or sensory changes, saddle anesthesia; but notes difficulty with urinating over the last few days along with constipation. Denies previous similar hx. No hx of osteoporosis. Takes no home medications. Denies fevers, chills, pre-syncope, cough, sob, chest pain, abdominal pain, diarrhea or dysuria. She has decreased oral intake due to nausea, but no vomiting. No recent illnesses, sick contacts or travels. Rest of 10 point ROS negative besides what stated above. In the ED, patient found to be hemodynamically stable with no respiratory compromise. Imaging of abd/pelv shows mild dilated colon w/ no obstruction and spine CT shows multiple levels of age undetermined compression fx in her lumbar spine. She mainly complains of lower back pain, but otherwise stable. Nurse was able to straight cath her in which she subsequently later urinated in her bed. She will be admitted for possible Jamison obstruction, lumbar compression fracture, and urinary incontinence. Consultations General Surgery Dr. Alma Sneed Hospital Course Mrs. Horner is a 80F with no sig PMH who presents for back pain, constipation and urinary incontinence. #Colon Distension 2' Ileus #Constipation - CT Abdomen - consistent with gastritis and Xray Abdomen consistent Ileus - Continue ppi - Bowel Regimen - Serial abdomen exams - Advanced diet however patient dislikes food - Surgery Following, appreciate recommendations - PT #Compression Fractures with vertebral body deformities T12-L4 #Severe Lumbar Spinal Stenosis - CT abdomen with deformities appreciated - Neurosurgery following with recommendations for MRI - Patient is refusing MRI - Denies pain #Urinary Retention - Serial bladder scan - UA wnl - Refusing medications and lauren #Hyperthyroid, concern for Graves - Endocrine consult with Dr. Sneed - Thyroid US limited - Nodule observed that will need repeat US in 1 yr - Initiated Methimzaole 10mg qd, APTO/TSI pending #Dementia Patient is forgetful, able to answer simple questions GI: PPI DVT: Lovenox 40 mg subq Diet: Advance diet as tolerate CODE: Full code, discussed with DAVE Page, grand-daughter [phone]) who will discuss further with her uncle Dsipo: Would benefit from SNF placement, CM to discuss with family Time spent on this encounter is 70 minutes with 40 minutes spent with care coordination with discussion with Nursing Staff and CM. Time of this note may not reflect the time patient was seen. Discharge Medications New Medications: Methimazole (Methimazole) 10 Mg Tablet 10 MG ORAL DAILY for 30 Days, #30 TAB Discharge Condition Upon Discharge: stable Discharge Vital Signs Last Vital Signs Date Time Temp Pulse Resp B/P (MAP) Pulse Ox O2 Delivery O2 Flow Rate FiO2 08/03/20 16:00 97.3 104 20 130/68 (88) 95 08/03/20 09:00 Room Air Discharge Disposition Patient was discharged to [facility] rehab Discharge Diagnoses: (1) Hyperthyroidism (2) Lumbar compression fracture (3) Bowel obstruction (4) Urinary retention Jonathan New M.D. Aug 03, 2020 16:27
[2020-08-03] MEDS: Enoxaparin 30mg Inj SUBQ SCH (21:00)
== END 2020-08-03 22:00 | disposition short-term general hospital (02) | DRG 247 ==
LOC: EDBD 10:38 → EMR 10:50 → 4E 11:57 → EDBEDREQ 14:39
DX: K56.7 Ileus, unspecified (principal); M48.54XA Collapsed vertebra, not elsewhere classified, thoracic region, initial encounter for fracture; M48.56XA Collapsed vertebra, not elsewhere classified, lumbar region, initial encounter for fracture; R33.9 Retention of urine, unspecified; K29.70 Gastritis, unspecified, without bleeding; M48.061 Spinal stenosis, lumbar region without neurogenic claudication; R73.9 Hyperglycemia, unspecified; K59.00 Constipation, unspecified; E05.90 Thyrotoxicosis, unspecified without thyrotoxic crisis or storm; F03.90 Unspecified dementia, unspecified severity, without behavioral disturbance, psychotic disturbance, mood disturbance, and anxiety; E87.2 Acidosis
CPT/HCPCS: 36415; 72131; 74018; 74177; 76536; 80048; 80053; 81003; 82248; 82306; 83036; 83605; 83735; 84100; 84436; 84439; 84443; 84481; 85025; 85610; 85651; 85730; 96361; 96365; 99285; J7030; U0002